=== PATIENT | female | born 1990 | race African-American/Black ===

== ENCOUNTER 2016-10-04 20:45 | Emergency (ER) | payer OTHER ==
[~2016-10-04] VITALS: Ht 162.6 cm; Wt 66.7 kg
[2016-10-04] MEDS ORDERED: PREN1CAP9 PO (20:51)
[2016-10-04] MEDS ORDERED: ONDANSETRON 4MG/2ML VIAL (J2405) IV ONE (21:15)
[2016-10-04 21:40] LABS: BASO % 0.3 % (0.0-1.0); EOS # 0.2 K/mm3 (0.0-0.50); EOS % 2.1 % (0.0-3.0); LARGE UNSTAINED CELL # 0.1 K/mm3 (0.0-0.4); LARGE UNSTAINED CELL % 1.3 % (0.0-4.0); LYMPH # 2.2 K/mm3 (1.5-6.5); LYMPH % 19.3 % (24.0-44.0); MEAN CORPUSCULAR HEMOGLOBIN 28.2 pg (27.0-33.0); MEAN CORPUSCULAR HGB CONC 33.5 g/dl (32.0-36.5); MEAN CORPUSCULAR VOLUME 84.2 fl (80.0-96.0); MONO # 0.5 K/mm3 (0.0-0.8); MONO % 4.3 % (0.0-5.0); NEUTROPHILS # 8.2 K/mm3 (1.8-7.7); NEUTROPHILS % 72.8 % (36.0-66.0); PLATELET COUNT, AUTOMATED 312 k/mm3 (150-450); RED CELL DISTRIBUTION WIDTH 13.5 % (11.5-14.5); WHITE BLOOD COUNT 11.3 K/mm3 (4.0-10.0)
[2016-10-04 22:22] LABS: ANION GAP 10 MEQ/L (8-16); BLOOD UREA NITROGEN 11 MG/DL (7-18); CALCIUM LEVEL 8.7 MG/DL (8.5-10.1); CARBON DIOXIDE LEVEL 24 MEQ/L (21-32); CHLORIDE LEVEL 105 MEQ/L (98-107); CREATININE FOR GFR 0.76 MG/DL (0.55-1.02); GLOMERULAR FILTRATION RATE > 60.0 (>60); GLUCOSE, FASTING 82 MG/DL (70-105); HCG, SERUM QUANTITATIVE 30185 MIU/ML; POTASSIUM SERUM 3.7 MEQ/L (3.5-5.1); SODIUM LEVEL 139 MEQ/L (136-145)
--- NOTE | 2016-10-04 22:40 | REPUSA ---
CLINICAL HISTORY: , cramping TECHNIQUE: Pelvic ultrasound COMPARISON: No study for comparison is available at the time of interpretation. Uterus: Normal without masses. Intrauterine gestation sac: Live IUP at 6 weeks 1 day by crown rump length with heart rate 107 bpm. Ovaries: Left corpus luteum Pelvic fluid: Insignificant. IMPRESSION: Live IUP at 6 weeks 1 day. DANGELO May 29, 2017.
[2016-10-04] MEDS ORDERED: ZOFR4TAB3 PO (23:03)
[2016-10-04 23:22] VITALS: BP 120/64
== END 2016-10-04 23:24 | disposition home or self-care (01) ==
LOC: M ED 21:34
DX: O21.9 Vomiting of pregnancy, unspecified (principal); Z3A.01 Less than 8 weeks gestation of pregnancy; Z79.899 Other long term (current) drug therapy
CPT/HCPCS: 76801; 80048; 81001; 84702; 85025; 93976; 96374; 99284; J2405

== ENCOUNTER 2017-05-31 14:37 | Outpatient (CLI) | payer OTHER ==
[~2017-05-31] VITALS: Ht 162.6 cm; Wt 84.7 kg
[~2017-05-31 14:37] MED LIST: PREN1CAP9 PO; ZOFR4TAB3 PO
[2017-05-31 15:05] VITALS: BP 102/66
--- NOTE | 2017-05-31 20:36 | IPNPDOC ---
Text Note Date of Service The patient was seen on 05/31/17. NOTE Mendy presented for ctx. She is a 26yo with SIUP at 39w1d with hx of prior desiring TOLAC. She left AMA when her wait was too long this afternoon. I let the nurse know that I would come to see the patient within a few minutes and the patient stated she would not wait any longer and demanded to leave. The nurse had her sign an AMA form. Review of FHRT after she left revealed Cat I FHRT with ctx on toco q6-8min. She is scheduled for routine clinic visit tomorrow and she stated to the nurse that she "should have just waited for the appointment". Dr. Brook Herrmann MD VS,Christopher, I+O VS, Christopher, I+O Vital Signs Date Time Temp Pulse Resp B/P (MAP) Pulse Ox O2 Delivery O2 Flow Rate FiO2 05/31/17 15:05 98.6 80 18 102/66 (78) Brook Herrmann MD May 31, 2017 20:36
== END 2017-05-31 16:51 | disposition home or self-care (01) ==
LOC: M LDO 14:37
PROVIDERS: ATTEND Obstetrics & Gynecology
DX: O26.893 Other specified pregnancy related conditions, third trimester (principal); Z3A.39 39 weeks gestation of pregnancy

== ENCOUNTER 2017-06-01 00:05 | Inpatient (IN) | payer OTHER ==
[2017-06-01] VITALS (28 sets, daily range): BP systolic 115–134; BP diastolic 56–77
[~2017-06-01] VITALS: Ht 152.4 cm; Wt 84.7 kg
[2017-06-01] MEDS ORDERED: LACTATED RINGER'S 1000 ML IV STA (00:39)
[2017-06-01] MEDS ORDERED: LR 1,000 ML IV SCH (00:39)
--- NOTE | 2017-06-01 00:56 | HPEPDOC ---
Obstetrical History & Physical General Date of Admission 01 Jun 2017 History of Present Illness Mendy is a 26yo with SIUP at 39w1d re-presenting with strong ctx. She came to triage earlier but left prior to being seen AMA. Review of FHRT showed Cat I tracing from previous presentation. She feels like she may be leaking fluid, she is not sure. Feels good movement. No vaginal bleeding. In triage had FHR variable decel to 70's that quickly resolved. 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 BREAST: . ABDOMEN: Gravid and non-tender to touch. FETUS: Is vertex (VTX) by sterile vaginal examination (SVE). Bulging bag of membranes present in front of head. HEART RATE: Regular rate and rhythm. LUNGS: Clear to auscultation (CTA). EXTREMITIES: No edema. No clonus. Deep tendon reflexes (DTRs) + . Vital Signs/I&O Vital Signs Date Time Temp Pulse Resp B/P (MAP) Pulse Ox O2 Delivery O2 Flow Rate FiO2 06/01/17 00:18 98.4 95 131/73 (92) Pertinent Laboratoy Data Blood Type: O+ RBC Antibody Screen: Negative HIV: Negative Hepatitis B: Negative Hepatitis C: Unknown Rapid Plasma Reagin: Nonreactive Rubella: Immune Varicella: Immune Chlamydia/Gonorrhea: Negative Group B Streptococcus: Negative Cystic Fibrosis: Negative Glucose Tolerance Test: 176 (100/139/134/120) Anatomy Ultrasound Ultrasound Date: Jan 18, 2017 Placenta Location: Anterior Normal Anatomy: Yes Placenta Previa: No Steroid Therapy Steroid Therapy: No Vaginal Examination Dilation: 7 cm Effacement: 80+% Station: -1 Cervical Consistency: Soft Cervical Position: Anterior Presentation: Cephalic presentation Assessment Heart Rate (FHR): 130 Variability: Moderate Accelerations: Positive Decelerations: Other (One variable decel that quickly self resolved with no further decels) Tocometer Contractions: Yes Frequency: regular, every 2-5 min. Duration: greater than 60 seconds Strength: palpated as strong Assessment/Plan Assessment Mendy is a 26yo with SIUP at 39w1d with hx of prior desiring TOLAC in active labor with SCE 7/80/-1, regular ctx q2-5min. Bulging bag of membranes present, cephalic by SCE. One variable decel in triage that quickly self resolved, otherwise reassuring FHRT. GBS negative. Vitals wnl. Plan Admit and orient. Patient still desires TOLAC Counseled and consented for vaginal delivery Diet: NPO Group B Streptococcus (GBS) negative Labs and intravenous (IV) per unit protocol. Lactated Ringers (LR): Bolus 1000 mL, then at 125 mL/hr. Candidate for epidural which she desires Anticipate normal spontaneous delivery () C-S as appropriate. MD Montez Santoyo Katrina D MD Jun 01, 2017 00:56
[2017-06-01 01:09] LABS: MEAN CORPUSCULAR HEMOGLOBIN 23.6 pg (27.0-33.0); MEAN CORPUSCULAR HGB CONC 31.6 g/dl (32.0-36.5); MEAN CORPUSCULAR VOLUME 74.8 fl (80.0-96.0); PLATELET COUNT, AUTOMATED 359 10^3/uL (150-450); RED CELL DISTRIBUTION WIDTH 16.6 % (11.5-14.5); WHITE BLOOD COUNT 12.9 10^3/uL (4.0-10.0)
[2017-06-01] MEDS ORDERED: FENTANYL 2MCG/ML ROPIVACAINE 0.2% IN 0.9% NACL 200ML IVBAG As Ordered ONE (01:17)
[2017-06-01] MEDS ORDERED: OXYTOCIN 30 UNITS IN 0.9% NaCl 500ML IV BAG (J2590) As Ordered ONE (02:25)
[2017-06-01] MEDS ORDERED: ePHEDrine SULFATE 25 MG/5 ML(5MG/ML) SYRINGE As Ordered ONE (02:25)
[2017-06-01] MEDS ORDERED: EPIDURAL COMMENT XX SCH (02:30)
[2017-06-01] MEDS ORDERED: FENTANYL/ROPIVACAINE/NACL BAG 200 ML EPIDURAL SCH (02:30)
[2017-06-01] MEDS ORDERED: diphenhydrAMINE INJ 50MG/ML VIAL (J1200) IV PRN (02:30)
[2017-06-01] MEDS ORDERED: EPIDURAL/PCA KEYS XX PRN (02:30)
[2017-06-01] MEDS ORDERED: REFRIGERATOR IV KEYS XX PRN (02:30)
[2017-06-01] MEDS ORDERED: LACTATED RINGER'S 1000 ML IV PRN (02:30)
[2017-06-01] MEDS ORDERED: ONDANSETRON 4MG/2ML VIAL (J2405) IV PRN ×2 (02:30→04:15)
[2017-06-01] MEDS ORDERED: ePHEDrine SULFATE 25 MG/5 ML(5MG/ML) SYRINGE IV PRN (02:30)
[2017-06-01] MEDS ORDERED: NALOXONE INJ 0.4 MG/1 ML VIAL (J2310) IV PRN (02:30)
--- NOTE | 2017-06-01 03:01 | IPNPDOC ---
Text Note Date of Service The patient was seen on 06/01/17. NOTE Pt now comfortable with epidural. Had a run of 4 late decels, received a dose of ephedrine with resolution though bp's were normal. Pt has O2 mask on. Moderate variability present. SCE showed bulging bag, after AROM now C/C/0. Moderate meconium noted. ctx q2-4min Will allow passive descent x 30 minutes then begin pushing. Safe to proceed. Dr. Brook Herrmann MD VS,Christopher, I+O VS, Christopher, I+O Laboratory Tests 06/01/17 01:00 Red Blood Count 4.61, Mean Corpuscular Volume 74.8 L, Mean Corpuscular Hemoglobin 23.6 L, Mean Corpuscular Hemoglobin Concent 31.6 L, Red Cell Distribution Width 16.6 H Vital Signs Date Time Temp Pulse Resp B/P (MAP) Pulse Ox O2 Delivery O2 Flow Rate FiO2 06/01/17 02:33 98.8 78 18 130/63 (85) Brook Herrmann MD Jun 01, 2017 03:01
[2017-06-01] MEDS ORDERED: DIBUCAINE 1% OINTMENT 30GM TOP PRN (04:15)
[2017-06-01] MEDS ORDERED: OXYTOCIN DRIP 30 UNITS in APPROPRIATE DILUENT 1 EA IV SCH (04:15)
[2017-06-01] MEDS ORDERED: RHOGAM 300 MCG (1500 IU) INJ (J2790) IM SCH (04:15)
[2017-06-01] MEDS ORDERED: DOCUSATE SODIUM 100 MG CAP PO PRN (04:15)
[2017-06-01] MEDS ORDERED: MEASLES,MUMPS,RUBELLA VACCINE INJ (MMR-II) (90707) SC SCH (04:15)
[2017-06-01] MEDS ORDERED: ACETAMINOPHEN 500 MG TAB PO PRN (04:15)
--- NOTE | 2017-06-01 04:24 | DNPDOC ---
[facility] Delivery Note Delivery Note DATE OF DELIVERY: 01 June 2017 at 0344 PREDELIVERY DIAGNOSIS: 39w2d gestation and labor, history of prior desiring trial of labor POST DELIVERY DIAGNOSIS: Delivered. PROCEDURE: vaginal after COMMODITY BROKER: Dr. Brook Herrmann MD ANESTHESIA: epidural ESTIMATED BLOOD LOSS: 250 mL. FINDINGS: 7 pound 10 ounce female , Score 8/9 DELIVERY SUMMARY: Mendy is a 26yo [id number] who presented to L&D in active labor at 39w2d desiring a trial of labor after prior . She made quick progress to C/C/ 0. She received an epidural and had excellent pain control. Moderate meconium was noted at time of AROM and Dr. Viramontes was alerted to its presence. She began pushing and within an hour the head delivered OA, restituted ANNE. Left anterior shoulder delivered followed by posterior shoulder and corpus. Immediate cry, vigorous placed on maternal chest while cord clamped x2 and cut and Dr. Viramontes began suctioning the infant. was then taken to warmer for further suctioning. Apgars 8/9. Cord blood obtained for MBT of O positive. With massage of uterine fundus and firm traction on the umbilical cord , the placenta delivered spontaneously intact with 3 vessel centrally inserted cord. Pitocin given per protocol and uterine fundus massaged. Inspection of perineum and vagina revealed bilateral labial lacerations repaired in usual fashion with 3-0 vicryl suture with complete reapproximation and hemostasis noted. EBL 250ml. weight 3470g (7#10). Mom and in stable condition , doing well. Brook Herrmann MD Jun 01, 2017 04:24
[2017-06-01] MEDS: PRENATAL VITAMINS CHEWABLE TABLET PO SCH (08:05)
[2017-06-01] MEDS: IBUPROFEN 800 MG TAB PO PRN (08:06)
[2017-06-02] MEDS: IBUPROFEN 800 MG TAB PO PRN (01:20)
[2017-06-02 06:00] VITALS: BP_SYST 121; BP_SYST 131; BP_DIAS 69
[2017-06-02] MEDS: PRENATAL VITAMINS CHEWABLE TABLET PO SCH (08:27)
[2017-06-02] MEDS ORDERED: COLA100C5 PO (12:22)
[2017-06-02] MEDS ORDERED: IBUP-1022 PO (12:22)
[2017-06-02] MEDS ORDERED: NUPE1OIN2 TOP (12:22)
[2017-06-02] MEDS ORDERED: TYLE325T5 PO (12:22)
[2017-06-03] MEDS ORDERED: INFLUENZA QUADRIVALENT PF VACCINE 0.5ML SYRINGE (90686) IM ONE (09:00)
== END 2017-06-02 13:00 | disposition home or self-care (01) | DRG 775 ==
LOC: M LDO 00:05 → M LDI 00:43 → M OBS 06:23
PROVIDERS: ADMIT Obstetrics & Gynecology; ATTEND Obstetrics & Gynecology
PROC: 10E0XZZ Delivery of Products of Conception, External Approach (ICD-10-PCS; principal; 2017-06-01)
PROC: 10907ZC Drainage of Amniotic Fluid, Therapeutic from Products of Conception, Via Natural or Artificial Opening (ICD-10-PCS; 2017-06-01)
PROC: 0HQ9XZZ Repair Perineum Skin, External Approach (ICD-10-PCS; 2017-06-01)
DX: O34.211 Maternal care for low transverse scar from previous cesarean delivery (principal); Z37.0 Single live birth; Z3A.39 39 weeks gestation of pregnancy; O77.0 Labor and delivery complicated by meconium in amniotic fluid; O70.0 First degree perineal laceration during delivery

== ENCOUNTER 2018-08-23 14:23 | Emergency (ER) | payer OTHER ==
[~2018-08-23] VITALS: Ht 165.1 cm; Wt 65.9 kg
[~2018-08-23 14:23] MED LIST changes: +COLA100C5 PO; +IBUP-1022 PO; +NUPE1OIN2 TOP; +TYLE325T5 PO; +ZOFR4TAB14 PO; -ZOFR4TAB3 PO
[2018-08-23] MEDS ORDERED: ROBI30SU PO (14:30)
[2018-08-23] MEDS ORDERED: NS 1,000 ML IV ONE (15:15)
[2018-08-23] MEDS ORDERED: ONDA4TAB6 PO (16:19)
[2018-08-23 16:25] VITALS: BP 119/64
== END 2018-08-23 17:17 | disposition home or self-care (01) ==
LOC: M ED 14:23 → EDBD 14:23 → M ED 17:17
DX: A08.4 Viral intestinal infection, unspecified (principal)

== ENCOUNTER 2018-09-30 11:23 | Inpatient (IN) | payer OTHER ==
[~2018-09-30] VITALS: Ht 162.6 cm; Wt 65.0 kg
[~2018-09-30 11:23] MED LIST changes: +ONDA4TAB6 PO; +ROBI30SU PO
[2018-09-30 14:08] LABS: HEMATOCRIT 45.9 % (36.0-47.0); HEMOGLOBIN 14.8 g/dl (12.0-15.5); MEAN CORPUSCULAR HEMOGLOBIN 27.2 pg (27.0-33.0); MEAN CORPUSCULAR HGB CONC 32.2 g/dl (32.0-36.5); MEAN CORPUSCULAR VOLUME 84.4 fl (80.0-96.0); PLATELET COUNT, AUTOMATED 302 10^3/uL (150-450); RED BLOOD COUNT 5.44 10^6/uL (4.00-5.40); WHITE BLOOD COUNT 8.2 10^3/uL (4.0-10.0)
[2018-09-30 14:36] LABS: AMPHETAMINES LEVEL URINE NEGATIVE (NEGATIVE); BARBITURATES URINE NEGATIVE (NEGATIVE); BENZODIAZEPINES URINE NEGATIVE (NEGATIVE); CANNABINOIDS URINE POSITIVE (NEGATIVE); COCAINE METABOLITE URINE NEGATIVE (NEGATIVE); METHADONE URINE NEGATIVE (NEGATIVE); OPIATES URINE NEGATIVE (NEGATIVE); PHENCYCLIDINE URINE NEGATIVE (NEGATIVE)
[2018-09-30 14:39] LABS: ACETAMINOPHEN LEVEL < 2.0 UG/ML (10.0-30.0); ALBUMIN 4.1 GM/DL (3.2-5.2); ALT/SGPT 16 U/L (12-78); BILIRUBIN,DIRECT 0.1 MG/DL (0.0-0.2); BILIRUBIN,TOTAL 0.5 MG/DL (0.2-1.0); BLOOD UREA NITROGEN 10 MG/DL (7-18); CALCIUM LEVEL 9.6 MG/DL (8.5-10.1); CARBON DIOXIDE LEVEL 24 MEQ/L (21-32); CHLORIDE LEVEL 106 MEQ/L (98-107); CREATININE FOR GFR 0.82 MG/DL (0.55-1.30); ETHYL ALCOHOL (ETHANOL) < 0.003 % (0.000-0.010); GLOMERULAR FILTRATION RATE > 60.0 (>60); GLUCOSE, FASTING 78 MG/DL (70-100); POTASSIUM SERUM 3.9 MEQ/L (3.5-5.1); SALICYLATE LEVEL 2.1 MG/DL (5.0-30.0); SODIUM LEVEL 140 MEQ/L (136-145); TOTAL PROTEIN 7.4 GM/DL (6.4-8.2)
[2018-09-30 16:01] LABS: HCG, SERUM QUANTITATIVE < 1.0 MIU/ML
[2018-09-30] MEDS ORDERED: ACETAMINOPHEN TAB 650MG DOSE (2X325MG) PO PRN (19:00)
[2018-09-30] MEDS ORDERED: MAALOX 30 ML SUSP *UDC PO PRN (19:00)
[2018-09-30] MEDS ORDERED: OLANZapine ORAL DISINTEGRATING TAB 5MG PO PRN (19:00)
[2018-09-30] MEDS ORDERED: MOM 30ML SUSPENSION UDC PO PRN (19:00)
[2018-09-30 20:26] VITALS: BP 143/85
[2018-10-01 06:14] VITALS: BP 102/53
[2018-10-01] MEDS: VENLAFAXINE **XR** 37.5 MG CAPSULE PO SCH (17:30)
[2018-10-01 18:00] VITALS: BP 129/71
[2018-10-01] MEDS ORDERED: ONDANSETRON 4 MG ORAL DISINTEGRATING TAB (Q0162 PER 1MG) PO PRN (22:30)
[2018-10-02 06:31] VITALS: BP 129/70
[2018-10-02] MEDS: VENLAFAXINE **XR** 37.5 MG CAPSULE PO SCH (09:00)
--- NOTE | 2018-10-02 15:00 | MHHPE ---
DATE OF ADMISSION: 10/01/2018 CHIEF COMPLAINT: Feels depressed. SUBJECTIVE: She is 28 years old. .she is . is in the . They have been together for several years. She has two children. She came to the hospital after she had called a counselor she had seen in the past. Informed her that she was depressed, irritable, and had suicidal thoughts. The counselor asked her to come to the hospital. She said she saw the counselor last year or so and is not currently a patient with her, as far as I am aware. Says has been upset, depressed, particularly since earlier this month, when she received only four phone calls on her birthday, [birth year]. Says a couple of them were from [id number] who were very brief, her mother, and her , who was brief as well. She says was a training and suggested it was because he was at training that he could not talk to her for very long. She felt people did not care enough about her and suggests has been depressed for a considerable part of the time since then. Has also felt somewhat irritable and anxious with disrupted sleep. She says she then decided to stop smoking cannabis. Says did not want to be "out of control." Stopped it about 4 days ago, and moods continue to somewhat fluctuate, feeling depressed, irritable. Says had thoughts of hurting herself, though did not have any firm plans. Says do not think would have gone ahead with hurting herself, however. Suggests had been doing well until about 3 weeks ago, but on further inquiry says does feel anxious at times. Is somewhat vague about this. Says smokes cannabis regularly, about four times a day. Done that for a couple of years but does not seem to be open about discussing it. She indicates that when anxious tends to go into her own world, imagination. Says enacts scenes from characters or programs that she likes, for example, The Walking , and says will absorb herself in that and act them out in her own private space. Says that may go on for while, at times a few hours, while doing other things, for example, cooking, but is able to accomplish them without major difficulties. Says may think about those characters and scenes in her own head, even when in public or with others, but will not act them out, only does the acting out in private. Says likes music and being with her family. Does not think these desires are diminished in any way. No history consistent with hypomania nor michael. No psychosis. No auditory or visual hallucinations. No delusions. Says has difficulties with concentration and is quite forgetful quite often, even when doing well and says the possibility of attention deficit hyperactivity disorder has been raised in the past. Says generally tends to be fidgety, even when doing well. PAST PSYCHIATRIC HISTORY: Says was put on Wellbutrin a few years ago for a brief while. Says had muscle cramps and did not take it for long. Was on Lexapro as well for a few weeks or a month. Says she tolerated it, but she does not think it was effective at all. FAMILY PSYCHIATRIC HISTORY: Denies any formally but suggests mother has had some with depression. SUBSTANCE ABUSE HISTORY: As indicated above, smokes cannabis regularly. Has done that for at least a couple of years. She also acknowledges that she used to smoke cannabis periodically when younger, but that the use has gone up over the last couple of years. Says there are times when she goes without the cannabis for a couple of months, and during those times tends to feel depressed. Says the cannabis helps her relax and sleep. Has also noticed that when she stops using the cannabis, feels sad, sometimes irritable. No history of inpatient psychiatric hospitalizations or any suicide attempts. MEDICAL HISTORY: Denies any medical difficulties. ALLERGIES: No known drug allergies. SOCIAL HISTORY: Says had a good childhood. Was raised by her mother. Father was not much in the picture. Says mother had various boyfriends. Says she got along with them. Denies any history of abuse. She re-established contact with her father a couple of years ago. Says things are going relatively well there. She and her have been together for several years. A few years ago she found out that he has another child by another person. He pays child support. Says found out about it from his sister. She says she was quite upset when she confronted him with it. She indicates he pays child support, and that is a burden on their finances as well. She says he tells her there is no contact with his child, but that she does not fully trust him. She is in [employer], [employer] ([employer]), studying sociology. MENTAL STATUS EXAMINATION: She is neat. She is cooperative. She is seen in the presence of staff. At times may be a little guarded but more relaxed as the interview proceeded. No agitation. No psychomotor retardation. No abnormal movements noted. Affect is restricted but reactive. She is coherent. Denies any suicidal thoughts or intents at present. No homicidal ideas or intents. No evidence of any psychosis. Cognition grossly intact. Her judgment and insight are questionable. VITAL SIGNS: Blood pressure 12/53, pulse 64, temperature 97.2. Complete blood count essentially within normal limits, except for RBC at 5.44 (4-5.4). Metabolic profile essentially within normal limits except for alkaline phosphatase slightly raised at 120. Urine toxicology is positive for cannabinoids. ASSESSMENT: 1. Other specified depressive disorder. 2. Rule out major depressive disorder. 3. Cannabis use disorder. 4. Consider cannabis-induced depressive disorder. The possibility of bipolar disorder needs to be taken into consideration and collateral information to help with that. PLAN: She is admitted to inpatient psychiatry unit, placed on relevant precautions. I would suggest obtaining collateral information with her permission, for example, from her . The possibility of attention deficit hyperactivity disorder also needs to be taken into consideration. In view of the above, she is started on Effexor XR at 37.5 mg daily. We will look at titrating it up as indicated. This may help with attention and concentration secondarily as well. It is preferable treating the patient's depressed mood rather than difficulties with attention and concentration only. She will be involved in individual, group, and milieu therapy. I would suggest not using any cannabis anymore. The rationale for that is explained. She will be discharged with followup once she is stable. I would anticipate a 5-7 day stay. The assessment took 45 minutes.
[2018-10-02 18:00] VITALS: BP 118/68
[2018-10-02] MEDS: traZODone 50 MG TAB PO PRN (23:09)
[2018-10-02 23:38] LABS: BASO % 0.5 % (0.0-1.0); EOS # 0.1 10^3/uL (0.0-0.50); HEMATOCRIT 41.2 % (36.0-47.0); HEMOGLOBIN 13.6 g/dl (12.0-15.5); LYMPH # 2.8 10^3/uL (1.5-6.5); LYMPH % 36.3 % (24.0-44.0); MEAN CORPUSCULAR HEMOGLOBIN 27.8 pg (27.0-33.0); MEAN CORPUSCULAR VOLUME 84.1 fl (80.0-96.0); MONO # 0.7 10^3/uL (0.0-0.8); MONO % 9.3 % (0.0-5.0); NEUTROPHILS # 4.1 10^3/uL (1.8-7.7); NEUTROPHILS % 52.8 % (36.0-66.0); PLATELET COUNT, AUTOMATED 287 10^3/uL (150-450); WHITE BLOOD COUNT 7.7 10^3/uL (4.0-10.0)
--- NOTE | 2018-10-02 23:51 | REPVR ---
EXAM: XR Abdomen, 3 or More Views EXAM DATE/TIME: 10/02/2018 11:09 PM CLINICAL HISTORY: 28 years old, female; Signs and symptoms; Vomiting; Additional info: Vomiting, abdominal pain TECHNIQUE: Imaging protocol: Frontal view of the abdomen/pelvis with upright view of the abdomen and one or more additional views. COMPARISON: No relevant prior studies available. FINDINGS: Gastrointestinal tract: Increase colonic feces may indicate constipation. Intraperitoneal space: Normal. No free air. Bones/joints: Unremarkable for age. Other findings: No acute intrathoracic findings. IMPRESSION: Increase colonic feces may indicate constipation. Electronically signed by: Gilbert Ventura On 10/02/2018 23:50:44 PM
[2018-10-03] LABS: ALBUMIN 3.8 GM/DL (3.2-5.2); ALT/SGPT 13 U/L (12-78); BILIRUBIN,TOTAL 0.3 MG/DL (0.2-1.0); BLOOD UREA NITROGEN 7 MG/DL (7-18); CALCIUM LEVEL 8.8 MG/DL (8.5-10.1); CARBON DIOXIDE LEVEL 28 MEQ/L (21-32); CHLORIDE LEVEL 104 MEQ/L (98-107); CREATININE FOR GFR 0.92 MG/DL (0.55-1.30); GLOMERULAR FILTRATION RATE > 60.0 (>60); GLUCOSE, FASTING 102 MG/DL (70-100); POTASSIUM SERUM 3.8 MEQ/L (3.5-5.1); SODIUM LEVEL 139 MEQ/L (136-145); TOTAL PROTEIN 7.4 GM/DL (6.4-8.2)
--- NOTE | 2018-10-03 04:17 | MHIPN ---
DATE: 09/30/2018 CHIEF COMPLAINT: Says feels less anxious. SUBJECTIVE: Seen for followup in the presence of staff. Says feels somewhat less anxious, and more aware of her emotions. Does say had thrown up. She feels it may have been something she ate, says also threw up the medicine that she was given, the Zofran, which was disintegrating. She indicates moods are better. She had seen her yesterday, says that went well. MENTAL STATUS EXAMINATION: Neat, cooperative. No agitation. She is coherent. Affect is reactive and fairly broad. No evidence of any thoughts of harming herself or anyone else, no evidence of any psychosis. Cognition is grossly intact. Judgment is possibly somewhat improved. Insight fair. ASSESSMENT: Other specified depressive disorder. PLAN: Continue current care, she has been started on Effexor XR at 37.5 mg daily and we will look at titrating it up eventually. I would suggest obtaining collateral information. Encourage participation in activities on the unit. She will see the treatment team and the assigned psychiatrist tomorrow, and further recommendations will be made. VITAL SIGNS: Blood pressure 129/70, pulse 67, temperature is 98.4.
[2018-10-03 06:00] VITALS: BP 131/76
[2018-10-03] MEDS: DOCUSATE SODIUM 100 MG CAP PO SCH (08:52)
[2018-10-03] MEDS: VENLAFAXINE **XR** 37.5 MG CAPSULE PO SCH (08:52)
--- NOTE | 2018-10-03 11:16 | HPE ---
DATE OF ADMISSION: 09/30/2018 HISTORY OF THE PRESENT ILLNESS: Please refer to psychiatric history and evaluation for further details on this admission. This examination and history is intended for medical issues which may need treatment, follow-up or consultation on this 28-year-old female. ALLERGIES: No known allergies. PRIMARY CARE PROVIDER: Funmilayo Calzada. SOCIAL HISTORY: She is . Her is a soldier currently stationed at [employer]. She has two children, a 7-year-old girl and a [id number] girl. ETOH she drinks a couple of times a y ear. Smokes none. Recreational drug marijuana. PAST MEDICAL HISTORY: Negative. PAST SURGICAL HISTORY: section. LABORATORY STUDIES: WBC 8.2, hemoglobin 14.8, hematocrit 45.9, platelets 302. Electrolytes are normal. BUN 10, creatinine 0.82. HCG was negative. Urine was positive for toxicology. REVIEW OF SYSTEMS: 10-systems review was done and was unremarkable other than a complaint of nausea and vomiting. She states that she vomited four times Wednesday night into Wednesday morning and one time Wednesday morning. She has been nauseated throughout the day. She ate only lettuce. She is complaining of just vague abdominal discomfort. No fever or chills. No diarrhea. No problems with urination. No hematemesis. No hematochezia. No melena. FAMILY HISTORY: Noncontributory. MEDICATIONS: None. PHYSICAL EXAMINATION: 28-year-old cooperative female in no acute distress. Height 64 inches, weight 65 kg, BMI 24.6, blood pressure 139/70, pulse 67, respirations 18, temperature 98.4. The patient is alert and oriented times three. Pupils equal and react to light. EOM's are intact. Cornea and sclerae are clear. Conjunctivae are normal. No facial asymmetry. Pharynx, tongue and gums are pink and moist. Tongue is midline. Neck is supple without lymphadenopathy. No thyromegaly. No goiter. Chest clear to auscultation without wheeze or retraction. Heart is regular. Abdomen soft, mild diffuse tenderness. No rebound or guarding. No masses, pulsations or bruits. No organomegaly. Bowel sounds are positive. /rectal not done. Extremities show equal strength. Full [id number]. No cyanosis, clubbing or edema. Peripheral pulses are equal and palpable bilaterally. Skin is warm and dry. IMPRESSION/PLAN: 1. Nausea and vomiting. Will get a flat and upright of the abdomen. Encourage clear liquids by mouth. Check a CBC and BMP. 2. Psychiatric plan per psychiatry.
--- NOTE | 2018-10-03 11:28 | MHIPNPDOC ---
[facility] Progress Note Progress Note DATE OF SERVICE: 10/03/18 HISTORY: per Dr. Jaramillo: "She is 28 years old. .she is . is in the . They have been together for several years. She has two children. She came to the hospital after she had called a counselor she had seen in the past. Informed her that she was depressed, irritable, and had suicidal thoughts. The counselor asked her to come to the hospital. She said she saw the counselor last year or so and is not currently a patient with her, as far as I am aware. Says has been upset, depressed, particularly since earlier this month, when she received only four phone calls on her birthday, [birth year]. Says a couple of them were from [id number] who were very brief, her mother, and her , who was brief as well. She says was a training and suggested it was because he was at training that he could not talk to her for very long. She felt people did not care enough about her and suggests has been depressed for a considerable part of the time since then. Has also felt somewhat irritable and anxious with disrupted sleep. She says she then decided to stop smoking cannab is. Says did not want to be "out of control." Stopped it about 4 days ago, and moods continue to somewhat fluctuate, feeling depressed, irritable. Says had thoughts of hurting herself, though did not have any firm plans. Says do not think would have gone ahead with hurting herself, however. Suggests had been doing well until about 3 weeks ago, but on further inquiry says does feel anxious at times. Is somewhat vague about this. Says smokes cannabis regularly, about four times a day. Done that for a couple of years but does not seem to be open about discussing it. She indicates that when anxious tends to go into her own world, imagination. Says enacts scenes from characters or programs that she likes, for example, [employer] Walking , and says will absorb herself in that and act them out in her own private space. Says that may go on for while, at times a few hours, while doing other things, for example, cooking, but is able to accomplish them without major difficulties. Says may think about those characters and scenes in her own head, even when in public or with others, but will not act them out, only does the acting out in private. Says likes music and being with her family. Does not think these desires are diminished in any way. No history consistent with hypomania nor michael. No psychosis. No auditory or visual hallucinations. No delusions. Says has difficulties with concentration and is quite forgetful quite often, even when doing well and says the possibility of attention deficit hyperactivity disorder has been raised in the past. Says generally tends to be fidgety, even when doing well. VITAL SIGNS: See below. NEW TEST RESULTS: ABD X-RAY: IMPRESSION: Increase colonic feces may indicate constipation. CURRENT MEDICATIONS: See below. MENTAL STATUS EXAMINATION: Neat, cooperative. No agitation. She is coherent. Affect is less depressed and fairly broad. No evidence of any thoughts of harming herself or anyone else, no evidence of any psychosis. Cognition is grossly intact. Judgment fair. Insight fair. DIAGNOSES: 1. Other specified depressive disorder. ASSESSMENT:Pt seen and states that her mood is better and is finding her effexor xr beneficial and tolerating it well. States she is noticing that she no longer wakes up feeling depressed and is no longer having crying episodes during to day.. States she's being social on the milieu and attending groups which is beneficial. Is learning coping skills she plans to continue to use in the future. Talked about additional coping skills she could utilize in the future for periods she's feeling down and no one cares about her. States she slept well last night. Feels she is tolerating her medications and they're beneficial. She denies SI/HI, hallucinations, delusions. Pt feels safe here. MANAGEMENT PLAN: continue plan Medications: Effexor XR at 37.5 mg daily TIME SPENT: 30 minutes. Vital Signs Vital Signs Date Time Temp Pulse Resp B/P (MAP) Pulse Ox O2 Delivery O2 Flow Rate FiO2 10/03/18 06:00 99.2 64 16 131/76 (94) 09/30/18 19:57 98 Room Air Laboratory Data 24H Labs Laboratory Tests 2 10/02/18 23:21: Immature Granulocyte % (Auto) 0.1, White Blood Count 7.7, Red Blood Count 4.90, Hemoglobin 13.6, Hematocrit 41.2, Mean Corpuscular Volume 84.1, Mean Corpuscular Hemoglobin 27.8, Mean Corpuscular Hemoglobin Concent 33.0, Red Cell Distribution Width 15.4H, Platelet Count 287, Neutrophils (%) (Auto) 52.8, Lymphocytes (%) (Auto) 36.3, Monocytes (%) (Auto) 9.3H, Eosinophils (%) (Auto) 1.0, Basophils (%) (Auto) 0.5, Neutrophils # (Auto) 4.1, Lymphocytes # (Auto) 2.8, Monocytes # (Auto) 0.7, Eosinophils # (Auto) 0.1, Basophils # (Auto) 0.0, Nucleated Red Blood Cells % (auto) 0.0, Anion Gap 7L, Glomerular Filtration Rate > 60.0, Blood Urea Nitrogen 7, Creatinine 0.92, Sodium Level 139, Potassium Level 3.8, Chloride Level 104, Carbon Dioxide Level 28, Calcium Level 8.8, Aspartate Amino Transf (AST/SGOT) 13, Alanine Aminotransferase (ALT/SGPT) 13, Alkaline Phosphatase 112, Total Bilirubin 0.3, Total Protein 7.4, Albumin 3.8, Albumin/Globulin Ratio 1.06 CBC/BMP Laboratory Tests 10/02/18 23:21 Red Blood Count 4.90, Mean Corpuscular Volume 84.1, Mean Corpuscular Hemoglobin 27.8, Mean Corpuscular Hemoglobin Concent 33.0, Red Cell Distribution Width 15.4 H, Neutrophils (%) (Auto) 52.8, Lymphocytes (%) (Auto) 36.3, Monocytes (%) (Auto) 9.3 H, Eosinophils (%) (Auto) 1.0, Basophils (%) (Auto) 0.5, Neutrophils # (Auto) 4.1, Lymphocytes # (Auto) 2.8, Monocytes # (Auto) 0.7, Eosinophils # (Auto) 0.1, Basophils # (Auto) 0.0, Calcium Level 8.8, Aspartate Amino Transf (AST/SGOT) 13, Alanine Aminotransferase (ALT/SGPT) 13, Alkaline Phosphatase 112, Total Bilirubin 0.3, Total Protein 7.4, Albumin 3.8 Current Medications Current Medications Acetaminophen (Tylenol Tab) 650 mg Q6HP PRN PO HEADACHE or DISCOMFORT Last administered on 10/03/18at 08:52; Start 09/30/18 at 19:00 Al Hydrox/Mg Hydrox/Simethicone (Mylanta) 30 ml Q4HP PRN PO HEARTBURN/INDIG ESTION; Start 09/30/18 at 19:00 Docusate Sodium (Colace) 100 mg DAILY PO Last administered on 10/03/18at 08:52; Start 10/03/18 at 09:00 Home Med (Med Rec Complete!) ASDIRECTED XX ; Start 09/30/18 at 19:45; Stop 09/30/18 at 19:45; Status DC Magnesium Hydroxide (Milk Of Magnesia) 30 ml DAILYPRN PRN PO CONSTIPATION; Start 09/30/18 at 19:00 Olanzapine (ZyPREXA ZYDIS) 5 mg Q4HP PRN PO AGITATION/ANXIETY; Start 09/30/18 at 19:00 Ondansetron HCl (Zofran Odt) 4 mg Q4HP PRN PO NAUSEA OR VOMITING Last administered on 10/01/18at 22:37; Start 10/01/18 at 22:30; Stop 10/02/18 at 22:30; Status DC Trazodone HCl (Desyrel) 50 mg QHSP PRN PO INSOMNIA Last administered on 10/02/18at 23:09; Start 09/30/18 at 19:00 Venlafaxine HCl (Effexor Xr) 37.5 mg DAILY PO Last administered on 10/03/18at 08:52; Start 10/01/18 at 09:00 Allergies Coded Allergies: No Known Allergies (Unverified , 10/04/16) MANFRED MARTI DO Oct 03, 2018 11:28 am
[2018-10-03 18:00] VITALS: BP 121/71
[2018-10-03] MEDS: traZODone 50 MG TAB PO PRN (23:00)
[2018-10-04 06:47] VITALS: BP 136/78
[2018-10-04] MEDS: VENLAFAXINE **XR** 37.5 MG CAPSULE PO SCH (09:34)
[2018-10-04] MEDS: DOCUSATE SODIUM 100 MG CAP PO SCH (09:34)
--- NOTE | 2018-10-04 09:36 | MHIPNPDOC ---
[facility] Progress Note Progress Note DATE OF SERVICE: 10/04/18 HISTORY: per Dr. Jaramillo: "She is 28 years old. .she is . is in the . They have been together for several years. She has two children. She came to the hospital after she had called a counselor she had seen in the past. Informed her that she was depressed, irritable, and had suicidal thoughts. The counselor asked her to come to the hospital. She said she saw the counselor last year or so and is not currently a patient with her, as far as I am aware. Says has been upset, depressed, particularly since earlier this month, when she received only four phone calls on her birthday, [birth year]. Says a couple of them were from [id number] who were very brief, her mother, and her , who was brief as well. She says was a training and suggested it was because he was at training that he could not talk to her for very long. She felt people did not care enough about her and suggests has been depressed for a considerable part of the time since then. Has also felt somewhat irritable and anxious with disrupted sleep. She says she then decided to stop smoking cannabis. Says did not want to be "out of control." Stopped it about 4 days ago, and moods continue to somewhat fluctuate, feeling depressed, irritable. Says had thoughts of hurting herself, though did not have any firm plans. Says do not think would have gone ahead with hurting herself, however. Suggests had been doing well until about 3 weeks ago, but on further inquiry says does feel anxious at times. Is somewhat vague about this. Says smokes cannabis regularly, about four times a day. Done that for a couple of years but does not seem to be open about discussing it. She indicates that when anxious tends to go into her own world, imagination. Says enacts scenes from characters or programs that she likes, for example, [employer] Walking , and says will absorb herself in that and act them out in her own private space. Says that may go on for while, at times a few hours, while doing other things, for example, cooking, but is able to accomplish them without major difficulties. Says may think about those characters and scenes in her own head, even when in public or with others, but will not act them out, only does the acting out in private. Says likes music and being with her family. Does not think these desires are diminished in any way. No history consistent with hypomania nor michael. No psychosis. No auditory or visual hallucinations. No delusions. Says has difficulties with concentration and is quite forgetful quite often, even when doing well and says the possibility of attention deficit hyperactivity disorder has been raised in the past. Says generally tends to be fidgety, even when doing well. VITAL SIGNS: See below. NEW TEST RESULTS: ABD X-RAY: IMPRESSION: Increase colonic feces may indicate constipation. CURRENT MEDICATIONS: See below. MENTAL STATUS EXAMINATION: Neat, cooperative. No agitation. She is coherent. Affect is less depressed and fairly broad. No evidence of any thoughts of harming herself or anyone else, no evidence of any psychosis. Cognition is grossly intact. Judgment fair. Insight fair. DIAGNOSES: 1. Other specified depressive disorder. ASSESSMENT:Pt seen and states that her mood is better and is finding her effexor xr beneficial and tolerating it well. States she's notice her appetite is less and believes it's b/c she's just getting tolerate to her effexor and that it will improve over time. Also recommended to take effexor with food in the morning as that can help with stomach upset. States anxiety is improved with effexor which feels nice. States she's being social on the milieu and attending groups which is beneficial. Continues to learning coping skills she plans to continue to use in the future. States she slept well last night. Feels she is tolerating her medications and they're beneficial. She denies SI/HI, hallucinations, delusions. Pt feels safe here. MANAGEMENT PLAN: continue plan Medications: Effexor XR at 37.5 mg daily TIME SPENT: 30 minutes. Vital Signs Vital Signs Date Time Temp Pulse Resp B/P (MAP) Pulse Ox O2 Delivery O2 Flow Rate FiO2 10/04/18 06:47 98.9 80 14 136/78 (97) 09/30/18 19:57 98 Room Air Current Medications Current Medications Acetaminophen (Tylenol Tab) 650 mg Q6HP PRN PO HEADACHE or DISCOMFORT Last administered on 10/03/18at 08:52; Start 09/30/18 at 19:00 Al Hydrox/Mg Hydrox/Simethicone (Mylanta) 30 ml Q4HP PRN PO HEARTBURN/INDIGESTION; Start 09/30/18 at 19:00 Docusate Sodium (Colace) 100 mg DAILY PO Last administered on 10/03/18at 08:52; Start 10/03/18 at 09:00 Home Med (Med Rec Complete!) ASDIRECTED XX ; Start 09/30/18 at 19:45; Stop 09/30/18 at 19:45; Status DC Magnesium Hydroxide (Milk Of Magnesia) 30 ml DAILYPRN PRN PO CONSTIPATION Last administered on 10/03/18at 11:34; Start 09/30/18 at 19:00 Olanzapine (ZyPREXA ZYDIS) 5 mg Q4HP PRN PO AGITATION/ANXIETY; Start 09/30/18 at 19:00 Ondansetron HCl (Zofran Odt) 4 mg Q4HP PRN PO NAUSEA OR VOMITING Last administered on 10/01/18at 22:37; Start 10/01/18 at 22:30; Stop 10/02/18 at 22:30; Status DC Trazodone HCl (Desyrel) 50 mg QHSP PRN PO INSOMNIA Last administered on 10/03/18 23:00; Start 09/30/18 at 19:00 Venlafaxine HCl (Effexor Xr) 37.5 mg DAILY PO Last administered on 10/03/18 08:52; Start 10/01/18 at 09:00 Allergies Coded Allergies: No Known Allergies (Unverified , 10/04/16) MANFRED MARTI DO Oct 04, 2018 9:36 am
[2018-10-04] MEDS ORDERED: MAGNESIUM CITRATE 300 ML BTL PO ONE (12:15)
[2018-10-04 18:00] VITALS: BP 138/73
[2018-10-04] MEDS: traZODone 50 MG TAB PO PRN (22:59)
[2018-10-05 06:49] VITALS: BP 115/76
[2018-10-05] MEDS ORDERED: TRAZO50TA PO (08:56)
[2018-10-05] MEDS ORDERED: VENL37.598 PO (08:56)
--- NOTE | 2018-10-05 08:56 | MHDSPDOC ---
[facility] Discharge Summary Discharge Summary DATE OF ADMISSION: Sep 30, 2018 at 7:00 pm DATE OF DISCHARGE: Oct 05, 2018 DISCHARGE DIAGNOSES: 1. depression unspecified REASON FOR ADMISSION: per Dr. Jaramillo: "She is 28 years old. .she is . is in the . They have been together for several years. She has two children. She came to the hospital after she had called a counselor she had seen in the past. Informed her that she was depressed, irritable, and had suicidal thoughts. The counselor asked her to come to the hospital. She said she saw the counselor last year or so and is not currently a patient with her, as far as I am aware. Says has been upset, depressed, particularly since earlier this month, when she received only four phone calls on her birthday, [birth year]. Says a couple of them were from [id number] who were very brief, her mother, and her , who was brief as well. She says was a training and suggested it was because he was at training that he could not talk to her for very long. She felt people did not care enough about her and suggests has been depressed for a considerable part of the time since then. Has also felt somewhat irritable and anxious with disrupted sleep. She says she then decided to stop smoking cannabis. Says did not want to be "out of control." Stopped it about 4 days ago, and moods continue to somewhat fluctuate, feeling depressed, irritable. Says had thoughts of hurting herself, though did not have any firm plans. Says do not think would have gone ahead with hurting herself, however. Suggests had been doing well until about 3 weeks ago, but on further inquiry says does feel anxious at times. Is somewhat vague about this. Says smokes cannabis regularly, about four times a day. Done that for a couple of years but does not seem to be open about discussing it. She indicates that when anxious tends to go into her own world, imagination. Says enacts scenes from characters or programs that she likes, for example, [employer] , and says will absorb herself in that and act them out in her own private space. Says that may go on for while, at times a few hours, while doing other things, for example, cooking, but is able to accomplish them without major difficulties. Says may think about those characters and scenes in her own head, even when in public or with others, but will not act them out, only does the acting out in private. Says likes music and being with her family. Does not think these desires are diminished in any way. No history consistent with hypomania nor michael. No psychosis. No auditory or visual hallucinations. No delusions. Says has difficulties with concentration and is quite forgetful quite often, even when doing well and says the possibility of attention deficit hyperactivity disorder has been raised in the past. Says generally tends to be fidgety, even when doing well. CONSULTANTS INVOLVED: none TREATMENT AND PROGRESS ON THE UNIT : Pt was admitted to [facility], seen for psychiatric assessment and started on effexor xr 37.5mg daily for mood and anxiety. She was provided trazodone 50mg qhs prn insomnia. Pt found her medications beneficial and tolerated them well. She attended groups daily during her stay. Her symptoms improved with treatment. On day of discharge she denied depression, anxiety, insomnia, SI/HI, hallucinations, delusions. She was discharged home after family meeting with her with follow-up at [facility]. She felt safe for discharge. DISCHARGE ASSESSMENT: Pt seen and states that her mood is good and is finding her effexor xr beneficial and tolerating it well. States she's looking forward to going home with her today. States anxiety is improved with effexor which feels nice. States she's being social on the milieu and attending groups which is beneficial. Continues to learning coping skills she plans to continue to use in the future. States she slept well last night. Feels she is tolerating her medications and they're beneficial. She denies depression, anxiety, insomnia, SI/HI, hallucinations, delusions. Pt feels safe to be discharged home today with her . MENTAL STATUS EXAMINATION ON DISCHARGE: Neat, cooperative. No agitation. She is coherent. Affect is euthymic, full, bright. No evidence of any thoughts of harming herself or anyone else, no evidence of any psychosis. Cognition is grossly intact. Judgment good. Insight good MEDICATIONS ON DISCHARGE: Effexor XR at 37.5 mg daily trazodone 50mg qhs prn insomnia PLAN/FOLLOWUP ARRANGEMENTS: D/c home with with follow-up at [facility]. The amount of time spent in the coordination of care for this patient was approximately 30 minutes. Vital Signs/I&Os Vital Signs Date Time Temp Pulse Resp B/P (MAP) Pulse Ox O2 Delivery O2 Flow Rate FiO2 10/05/18 06:49 96.7 65 14 115/76 (89) 09/30/18 19:57 98 Room Air Medications Scheduled Venlafaxine HCl (Venlafaxine HCl ER) 37.5 Mg Capcr, 37.5 MG PO DAILY for mood, #10 Scheduled PRN Trazodone HCl (Trazodone HCl) 50 Mg Tab, 50 MG PO QHSP PRN for INSOMNIA, #10 Allergies Coded Allergies: No Known Allergies (Unverified , 10/04/16) MANFRED MARTI DO Oct 05, 2018 8:56 am
[2018-10-05] MEDS: DOCUSATE SODIUM 100 MG CAP PO SCH (09:00)
[2018-10-05] MEDS: VENLAFAXINE **XR** 37.5 MG CAPSULE PO SCH (09:14)
== END 2018-10-05 10:20 | disposition home or self-care (01) | DRG 881 ==
LOC: M ED 11:23 → M ED INP 19:00 → M PSY 20:20
PROVIDERS: ADMIT Psychiatry & Neurology Psychiatry; ATTEND Psychiatry & Neurology Psychiatry
DX: F32.9 Major depressive disorder, single episode, unspecified (principal); R45.851 Suicidal ideations